=== PATIENT | female | born 1980 | race African-American/Black ===

== ENCOUNTER 2017-10-23 15:04 | Emergency (ER) | payer OTHER ==
[2017-10-23 15:20] VITALS: BP 148/93; PULSE 82; TEMP 99.4; BMI 34.4
[2017-10-23] MEDS ORDERED: ACETAMINOPHEN 325 MG TABLET (FP) ONE (15:56)
[2017-10-23] MEDS ORDERED: ACETAMINOPHEN 325 MG TABLET (FP) PO ONE (15:58)
--- NOTE | 2017-10-23 16:01 | PDOC ---
History of Present Illness - General Chief Complaint: Sore Throat Stated Complaint: THROAT PAIN Time Seen by Provider: 10/23/17 15:49 History Source: Patient Exam Limitations: No Limitations - History of Present Illness Initial Comments: 10/23/17 15:59 Patient states had onset of sore throat pain and swelling to her tonsils since . Was seen at another hospital on Tuesday, no testing was done but was evaluated and told viral illness and given ibuprofen for pain relief. A since that time has had persistent and worsening of fevers and chills, worsening sore throat pain, and unable to eat due to pain of her throat. Timing/Duration: unsure Modifying Factors: improves with: cold therapy, medication Associated Symptoms: reports: fever/chills, loss of appetite, malaise Past History - Travel Traveled outside of the country in the last 30 days: No Close contact w/someone who was outside of country & ill: No - Past Medical History Allergies/Adverse Reactions: Allergies Allergy/AdvReac Type Severity Reaction Status Date / Time No Known Allergies Allergy Verified 10/23/17 15:15 Home Medications: Ambulatory Orders Azithromycin [Zithromax -] 250 mg PO UTDICT #6 tab 10/23/17 COPD: No - Suicide/Smoking/Psychosocial Hx Smoking History: Current some day smoker Information on smoking cessation initiated: Yes 'Breaking Loose' booklet given: 10/23/17 Hx Alcohol Use: No Drug/Substance Use Hx: No Review of Systems - Review of Systems Able to Perform ROS?: Yes Is the patient limited Arabic proficient: Yes Constitutional: Yes: Symptoms Reported, See HPI, Chills, Fever, Loss of Appetite , Malaise HEENTM: Yes: Symptoms Reported, See HPI, Throat Pain, Throat Swelling, Mouth Swelling Respiratory: Yes: Symptoms reported, See HPI. No: Cough Cardiac (ROS): No: Symptoms Reported Musculoskeletal: Yes: Symptoms Reported Neurological: Yes: Symptoms reported, See HPI, Headache All Other Systems: Reviewed and Negative *Physical Exam - Vital Signs Last Vital Signs Temp Pulse Resp BP Pulse Ox 99.4 F 82 18 148/93 99 10/23/17 15:15 10/23/17 15:15 10/23/17 15:15 10/23/17 15:15 10/23/17 15:15 - Physical Exam General Appearance: Yes: Nourished, Appropriately Dressed, Apparent Distress, Mild Distress, Moderate Distress HEENT: positive: ANNALISE, TMs Normal (adjusted but landmarks easily visualized), Pharyngeal Erythema, Tonsillar Exudate, Tonsillar Erythema, Rhinorrhea Neck: positive: Tender, Supple, Lymphadenopathy (R), Lymphadenopathy (L) ( bilateral large AC and PC nodes) Respiratory/Chest: positive: Lungs Clear, Normal Breath Sounds. negative: Wheezing Gastrointestinal/Abdominal: positive: Soft. negative: Tender Musculoskeletal: negative: Normal Inspection Extremity: positive: Normal Capillary Refill, Normal Inspection Integumentary: positive: Normal Color, Dry, Warm, Pale Neurologic: positive: bag worker II-XII NML intact, Fully Oriented, Alert, Normal Mood/ Affect, Normal Response, Motor Strength 07/09 Medical Decision Making - Medical Decision Making 10/23/17 16:47 Rapid strep test negative, reviewed with patient that there is possibility of a different type of strep other than beta-hemolytic that could be positive however at this stage we'll give a watch and wait Azithromyosin packet and instructed patient to wait for results of the culture, and may start as needed. Otherwise continue conservative measures, pain medication and antipyretics and follow-up with PMD next 2 days *DC/Admit/Observation/Transfer Diagnosis at time of Disposition: Pharyngitis Qualifiers: Pharyngitis/tonsillitis etiology: unspecified etiology Qualified Code(s): J02.9 - Acute pharyngitis, unspecified - Discharge Dispostion Disposition: HOME Condition at time of disposition: Stable Decision to Admit order: No - Prescriptions Prescriptions: Azithromycin [Zithromax -] 250 mg PO UTDICT #6 tab - Referrals Referrals: Mundo Ly MD [Primary Care Provider] - - Patient Instructions Additional Instructions: Rest, drink lots of fluids: Teas, water, soups, Pedialyte Saltwater gargles Steamy showers/seem to face break up mucus Avoid contact with others until fevers and cough resolved Lots of handwashing and good hygiene Continue [id number] medications for symptomatic relief Tylenol or Motrin for fever and pain Start azithromycin for worsening symptoms, fevers greater than 101.5, worsened sore throat pain, purulent drainage from nose, or phone call indicating there is a positive strep culture Followup with private physician in one to 2 days as needed Return to emergency department for worsened symptoms, fevers, dehydration - Post Discharge Activity Forms/Work/School Notes: Back to Work
== END 2017-10-23 16:51 | disposition home or self-care (01) ==
LOC: JERFT 15:04
DX: J02.9 Acute pharyngitis, unspecified (principal); F17.210 Nicotine dependence, cigarettes, uncomplicated
CPT/HCPCS: 87070; 87430; 99281-25

== ENCOUNTER 2023-08-21 13:26 | Emergency (ER) | payer BC ==
[2023-08-21 13:51] VITALS: RESP 18; TEMP 97.7; BMI 31.0
[2023-08-21 14:03] VITALS: PULSE 60
[2023-08-21 14:22] LABS: BASO % 0.4 % (0-2.0); EOS % 0.7 % (0-4.5); HEMATOCRIT 37.2 % (32.4-45.2); HEMOGLOBIN 12.4 GM/dL (10.7-15.3); LYMPH % 31.8 % (8-40); MCH 27.3 pg (25.7-33.7); MCHC 33.2 g/dl (32.0-36.0); MEAN PLT VOLUME 9.7 fl (7.5-11.1); MONO % 11.3 % (3.8-10.2); NEUT % 55.8 % (42.8-82.8); PLATELET COUNT 267 10^3/uL (134-434); RBC 4.54 M/mm3 (3.60-5.2); RDW 15.5 % (11.6-15.6); WHITE BLOOD COUNT 6.1 K/mm3 (4.0-10.0)
[2023-08-21] MEDS ORDERED: MECLIZINE HCL 25 MG TABLET (FP) ONE ×2 (14:24→14:26)
[2023-08-21] MEDS ORDERED: ONDANSETRON 4 MG/2 ML VIAL ONE (14:25)
[2023-08-21] MEDS: ONDANSETRON 4 MG/2 ML VIAL IVPUSH ONE (14:31)
[2023-08-21] MEDS: MECLIZINE HCL 25 MG TABLET (FP) PO ONE (14:31)
[2023-08-21] MEDS: SODIUM CHLORIDE 0.9% 1000 ML INFUS.BAG IV ONE (14:31)
[2023-08-21 14:43] LABS: CALCIUM 8.9 mg/dL (8.5-10.1)
[2023-08-21 14:44] LABS: ALBUMIN 3.3 g/dl (3.4-5.0); BLOOD UREA NITROGEN 5.2 mg/dL (7-18)
[2023-08-21 14:47] LABS: CREATININE 0.5 mg/dL (0.55-1.3)
[2023-08-21 14:49] LABS: BILIRUBIN,TOTAL 0.3 mg/dL (0.2-1); TOT PROT 7.2 g/dl (6.4-8.2)
[2023-08-21 16:56] VITALS: BP 120/74
[2023-08-21 17:13] LABS: PH,URINE 7.5 (5.0-8.0); URINE APPEARANCE CLEAR; URINE BILIRUBIN NEGATIVE (NEGATIVE); URINE COLOR YELLOW; URINE GLUCOSE (UA) NEGATIVE (NEGATIVE); URINE KETONE TRACE (NEGATIVE); URINE LEUK ESTERASE NEGATIVE (NEGATIVE); URINE NITRITE NEGATIVE (NEGATIVE); URINE PROTEIN NEGATIVE (NEGATIVE); URINE UROBILINOGEN 0.2 mg/dL (0.2-1.0)
== END 2023-08-21 17:27 | disposition home or self-care (01) ==
LOC: JER 13:26
PROC: 3E033GC Introduction of Other Therapeutic Substance into Peripheral Vein, Percutaneous Approach (ICD-10-PCS; principal; 2023-08-21)
DX: R42 Dizziness and giddiness (principal); F12.988 Cannabis use, unspecified with other cannabis-induced disorder; R11.2 Nausea with vomiting, unspecified
CPT/HCPCS: 36415; 70450-TC; 80053; 81003; 84443; 84484; 84703; 85025; 87086; 93005; 93010; 99285-25